=== PATIENT | male | born 1965 | race Caucasian/White ===

== ENCOUNTER 2019-03-14 15:24 | Emergency (ER) | payer OTHER ==
[~2019-03-14] VITALS: Ht 182.9 cm; Wt 89.0 kg
[2019-03-14 15:29] VITALS: BP 152/85; PULSE 92; RESP 20; Ht 182.9 cm; Wt 89.0 kg
[2019-03-14] MEDS ORDERED: IBUP-1542 PO (16:20)
[2019-03-14] MEDS ORDERED: BENZ200C68 PO (16:20)
[2019-03-14] MEDS ORDERED: AZIT250T PO (16:20)
--- NOTE | 2019-03-14 18:19 | ERD ---
ER Documentation Chief Complaint Chief Complaint COUGH X 1 WEEK, INTERMITTENT CORTES X 1 WEEK, BODY ACHES HPI This patient is a 53-year-old male with past medical history of migraines presenting to the emergency department with complaints of productive cough intermittently for the past 1 week. He initially had fevers but this is resolved. He was using [id number] medication at home with some relief. Symptoms are overall worse at night and moderate in severity. He denies any current fevers, chills, abdominal pain, shortness of breath, or other symptoms at this time. ROS All systems reviewed and are negative except as per history of present illness. Medications Home Meds Active Scripts Ibuprofen* (Motrin*) 600 Mg Tab, 600 MG PO Q6, #30 TAB Prov:LIONEL FALLON PA-C 03/14/19 Benzonatate* (Benzonatate*) 200 Mg Capsule, 200 MG PO TID PRN for COUGH, #15 CAP Prov:LIONEL FALLON PA-C 03/14/19 Azithromycin* (Zithromax*) 250 Mg Tablet, 250 MG PO .ZPACK DIRECTED, #6 TAB TAKE 500 MG (2 TABS) THE FIRST DAY THEN 250 MG (1 TAB) DAYS 2-5 Prov:LIONEL FALLON PA-C 03/14/19 Allergies Allergies: Coded Allergies: No Known Allergy (Unverified , 03/14/19) PMhx/Soc Medical and Surgical Hx: pt denies Medical Hx, pt denies Surgical Hx Hx Alcohol Use: No Hx Tobacco Use: No Smoking Status: Never smoker FmHx Family History: No diabetes Physical Exam Vitals Vital Signs Date Temp Pulse Resp B/P (MAP) Pulse Ox O2 O2 Flow FiO2 Time Delivery Rate 03/14/19 97.9 92 20 152/85 95 15:29 (107) Physical Exam Const: No acute distress Head: Atraumatic Eyes: Normal Conjunctiva ENT: Normal External Ears, Nose and Mouth. Neck: Full range of motion. No meningismus. Resp: Shallow inspiratory effort. No crackles. Mild bilateral inspiratory rh onchi. Cardio: Regular rate and rhythm, no murmurs Skin: No petechiae or rashes Ext: No cyanosis, or edema Neur: Awake and alert Psych: Normal Mood and Affect Procedures/MDM 53-year-old male presenting to the emergency department with signs and symptoms most consistent with acute bronchitis, with possible bacterial etiology. Patient showed no signs of respiratory distress. I doubt pneumonia, pneumothorax, pulmonary embolism, acute coronary syndrome, or other emergencies. Due to patient's duration of symptoms and examination, I will treat as an outpatient with a prescription for azithromycin, benzonatate, and ibuprofen. The patient was in agreement with the diagnosis, plan, need for follow-up, return precautions. He was advised to return to the department immediately for any new or worsening or concerning symptoms. Patient's blood pressure was elevated (>120/80) but appears stable without evidence of hypertension emergency or urgency. The patient is to follow-up and pursue outpatient monitoring and therapy with their primary care physician within 1 week and return immediately if they have any new, worsening, or concerning symptoms. Departure Diagnosis: Primary Impression: Acute bronchitis Condition: Fair Patient Instructions: Bronchitis, Antiobiotic Treatment (Adult) Referrals: [facility] YOU HAVE RECEIVED A MEDICAL SCREENING EXAM AND THE RESULTS INDICATE THAT YOU DO NOT HAVE A CONDITION THAT REQUIRES URGENT TREATMENT IN THE EMERGENCY DEPARTMENT. FURTHER EVALUATION AND TREATMENT OF YOUR CONDITION CAN WAIT UNTIL YOU ARE SEEN IN YOUR DOCTORS OFFICE WITHIN THE NEXT 1-2 DAYS. IT IS YOUR RESPONSIBILITY TO MAKE AN APPOINTMENT FOR FOLOW-UP CARE. IF YOU HAVE A PRIMARY DOCTOR --you should call your primary doctor and schedule an appointment IF YOU DO NOT HAVE A PRIMARY DOCTOR YOU CAN CALL OUR PHYSICIAN REFERRAL HOTLINE AT IF YOU CAN NOT AFFORD TO SEE A PHYSICIAN YOU CAN CHOSE FROM THE FOLLOWING [facility] [id number] [facility]. [facility] [address] [facility] [facility] [address] [facility] [facility] [address] [facility]. [facility] [address] [facility]. [facility]. [address] Additional Instructions: Call your primary care doctor TOMORROW for an appointment during the next 1-2 days.See the doctor sooner or return here if your condition worsens before your appointment time. LIONEL FALLON PA-C March 14, 2019 18:19
== END 2019-03-14 16:51 | disposition home or self-care (01) ==
LOC: FTE 15:24
DX: J20.9 Acute bronchitis, unspecified (principal)
CPT/HCPCS: 99283